=== PATIENT | female | born 1940 | race Caucasian/White ===

== ENCOUNTER 2016-10-08 19:02 | Emergency (ER) | payer MEDICARE ==
[~2016-10-08] VITALS: Ht 167.6 cm; Wt 68.4 kg
[2016-10-08 19:19] VITALS: BP 141/77; PULSE 79; RESP 20; O2SAT 97
--- NOTE | 2016-10-08 19:35 | ED.REPORT ---
HPI-Abd Pain F 40 and Over Date of Service Oct 08, 2016 ED Provider: Leonardo Easton MD Pt is a 76 y/o female w/ a hx of HTN, dementia, Crohn's, diverticulitis, presenting to the ED c/o N/V/D onset this morning. She c/o associated abdominal pain which she describes as a lower abdominal fullness with radiation to the back, chills, dysuria. She has had 5 episodes of diarrhea and 2 episodes of emesis today. She denies fever, urinary frequency, hematuria, CP, SOB, lightheadedness, cough. There was 1 episode of bloody diarrhea 2 days ago and her daughter noted some blood on the toilet paper today. There has been significant weight loss within the past year. She does have a 17 year history of abdominal issues which she has been told are related to Crohn's disease and diverticulitis. Nursing Notes Stated Complaint: VOMITTING, DIARHEA Chief Complaint: Female Abdominal Pain Nursing Notes Reviewed: Yes Allergies: Coded Allergies: No Known Allergies (Unverified , 10/08/16) General Time Seen by MD: 19:34 Chief Complaint Other (NVD) Hx Obtained From: Patient Arrived By: Walk-in Sudden in Onset?: No Onset Occurred: 5 - 8 hours ago Symptom Duration: Since onset Progression since Onset: Unchanged Location: : Diffuse Quality: Aching Severity: Current: Mild Severity: Maximum: Mild Past Medical History Past Medical History Breast cancer bilat - s/p mastectomy Dementia HTN Crohn's disease Hx diverticulitis Past Surgical History Bilat mastectomy Breast reconstruction Smoking History Unknown if Ever Smoker Social History Other Social History: Good social support Ambulatory Status Independent Review of Systems Constitutional: Reports: Chills, Denies: Fever Respiratory: Denies: Non-productive cough, Shortness of breath Cardiovascular: Denies: Chest pain GI: Reports: Abdominal pain, Bloody/tarry stool, Diarrhea, Nausea, Vomiting Female: Reports: Dysuria, Denies: Urinary frequency Complete sys rev & neg: except as marked. Neurologic: Denies: Lightheaded Physical Exam Vital Signs Vital Signs (First) Date Time Temp Pulse Resp B/P Pulse Ox O2 Delivery O2 Flow Rate FiO2 10/08/16 19:19 36.6 79 20 141/77 97 Room Air Initial VS: Reviewed, Vital signs normal Head / Eyes: Atraumatic, Normocephalic, PERRL Neck: Supple, Full range of motion Extremities: Vascular intact, Neuro intact, No swelling, No tenderness Skin: Warm, Dry, No cyanosis Neurologic: Alert, Oriented, Nonfocal Psychiatric: Mood/affect normal, Behavior normal, Normal thought content General/Constitutional: Awake, Alert, No acute distress, Cooperative, Not toxic appearing Respiratory / Chest: Atraumatic, Breath sounds NL, Breath sounds = bilat, No respiratory distress, No rales, No rhonchi, No wheezing, No retractions, No stridor, No chest tenderness, No chest wall deformity, No crepitus Cardiovascular: Heart rate NL, Regular rhythm, Heart sounds NL, No gallop, No murmurs, No rubs, Cap refill not delayed, Peripheral circulation NL Abdomen: Atraumatic, Soft, No guarding, No rebound, No distention, No palpable mass Tenderness/Guarding/Rebound: Positive: Tender LLQ... (Moderate), Tender diffuse (mild) Back: Full range of motion, Painless range of motion, No CVA tenderness Rectum / Perineum: Atraumatic, Blood - occult heme -, No gross blood Right anterior internal hemorrhoid Interpretation & Diagnostics Lab Results Interpretation Result Diagram: 10/08/16199910/08/161999 Test 10/08/16 20:00 10/08/16 21:30 White Blood Count 9.4th/mm3 (3.8-10.1) Red Blood Count 5.18mil/mm3 (3.90-5.20) Hemoglobin 15.5g/dL (12.0-15.6) Hematocrit 44.6% (35.0-46.0) Mean Corpuscular Volume 86.1fL (81-100) Mean Corpuscular Hemoglobin 29.9pg (27.0-35.0) Mean Corpuscular Hemoglobin Concent 34.8% (32.0-37.0) Red Cell Distribution Width 13.6% (12.3-15.4) Platelet Count 199bil/L (150-400) Neutrophils (%) (Auto) 87.6% (40-74) Lymphocytes (%) (Auto) 6.7% (14-46) Monocytes (%) (Auto) 4.9% (4-12) Eosinophils (%) (Auto) 0.3% (0-5) Basophils (%) (Auto) 0.2% (0-3) Hold Purple Top Tube Received (Received) Hold Blue Top Tube Received (Received) Sodium Level 140mEq/L (134-144) Potassium Level 3.3mEq/L (3.5-5.2) Chloride Level 102mEq/L (97-108) Carbon Dioxide Level 20mmol/L (18-29) Blood Urea Nitrogen 17mg/dL (8-27) Creatinine 0.82mg/dL (0.57-1.00) Estimat Glomerular Filtration Rate 97mL/min (>59) Glucose Level 164mg/dL (60-99) Calcium Level 10.1mg/dL (8.5-10.1) Magnesium Level 2.0mg/dL (1.6-2.6) Total Bilirubin 0.5mg/dL (0.0-1.2) Aspartate Amino Transf (AST/SGOT) 28U/L (0-50) Alanine Aminotransferase (ALT/SGPT) 17U/L (0-32) Alkaline Phosphatase 84U/L (25-165) Total Protein 7.2g/dL (6.4-8.4) Albumin 4.2g/dL (3.4-5.0) Lipase 46U/L (13-60) Hold Red Top Tube Received (Received) Hold [place] Top Tube Received (Received) Hold Sánchez Top Tube Received (Received) Urine Color Yellow (YELLOW) Urine Appearance Clear (CLEAR,HAZY) Urine pH 6.5 (5.0-8.0) Urine Specific [place] 1.015 (1.003-1.035) Urine Protein Negativemg/dL (NEG,TRACE) Urine Glucose (UA) Negativemg/dL (NEGATIVE) Urine Ketones Negativemg/dL (NEGATIVE) Urine Occult Blood Small (NEGATIVE) Urine Nitrite Positive (NEGATIVE) Urine Bilirubin Negative (NEGATIVE) Urine Urobilinogen Normalmg/dL (NORMAL) Urine Leukocyte Esterase Small (NEGATIVE) Urine RBC 0-2/hpf (0-2) Urine WBC 6-10/hpf (0-5) Urine Epithelial Cells None/hpf (NONE-MOD) Urine Crystals None seen (NONE SEEN) Urine Bacteria Many/hpf (NONE-FEW) Urine Hyaline Casts None/lpf (NONE) Urine Granular Casts None seen (NONE SEEN) Urine Waxy Casts None seen (NONE SEEN) Urine Red Blood Cell Casts None seen (NONE SEEN) Urine White Blood Cell Casts None seen (NONE SEEN) Urine Mucus Present (None Seen) Urine Trichomonas None seen (NONE SEEN) Urine Yeast None (NONE SEEN) Urinalysis Comment None Urine Culture Reflexed Indicated Re-Eval/Medical Decision Re-Evaluation/Progress : Time of Eval: 22:25 Re-Evaluation/Progress Note: Pt rechecked. Discussed lab results. Informed pt of plan for treatment. Pt understands and agrees with plan for treatment. F/U instructions and RTER warnings given. All questions addressed. Counseled Regarding: Diagnosis, Lab results, Need for follow-up, When/why to return to ED Discharge & Departure Primary Impression: Urinary tract infection Urinary tract infection type: site unspecified Hematuria presence: without hematuria Qualified Code: N39.0 - Urinary tract infection, site not specified Additional Impression: Gastroenteritis Disposition: Home Discharge Condition All VS Reviewed: Yes Condition: Stable Patient Instructions: Urinary Tract Infection in Women (ED), Gastroenteritis ( ED) Additional Instructions: The lab tests today were normal other than the urine which showed signs of infection. With each diarrhea stool, give her Imodium. Give her Zofran as needed for nausea and vomiting. Give her the full course of Macrobid as directed. Return to the emergency department for uncontrolled vomiting or diarrhea, lethargy or profound weakness, high fever, severe pain, persistent bloody stools , or for other concerning symptoms. Follow up with her doctor later this week if she does not improve. Referrals: [facility] Scribe Attestation Portions of this note were transcribed by Javier Garcia. I, Dr. Easton personally performed the history, physical exam and medical decision-making; I reviewed and confirmed the accuracy of the information in the transcribed note. Signed by Sincere Cabrera, 10/08/16 - 1999 Leonardo Easton MD Oct 08, 2016 19:35 JAVIER GARCIA Oct 08, 2016 19:38
[2016-10-08] MEDS ORDERED: 0.9% Sodium Chloride 1,000 ML IV ONE (20:24)
[2016-10-08] MEDS ORDERED: Pantoprazole 4 mg/mL 10 mL Inj IVPUSH ONE (20:25)
[2016-10-08] MEDS ORDERED: Ondansetron 2 mg/mL 2 mL Inj IVPUSH PRN (20:25)
[2016-10-08 20:35] LABS: BASOPHILS % (AUTO) 0.2 % (0-3); EOSINOPHILS % (AUTO) 0.3 % (0-5); MONOCYTES % (AUTO) 4.9 % (4-12); Mean Corpuscular Hemoglobin 29.9 pg (27.0-35.0); Mean Corpuscular Volume 86.1 fL (81-100); NEUTROPHILS % (AUTO) 87.6 % (40-74); Platelet Count 199 bil/L (150-400)
[2016-10-08 21:46] VITALS: BP 123/60; PULSE 86; RESP 17; O2SAT 97
[2016-10-08 21:46] LABS: APPEARANCE,URINE CLEAR (CLEAR,HAZY); COLOR,URINE YELLOW (YELLOW); OCCULT BLOOD,URINE SMALL (NEGATIVE); PH,URINE 6.5 (5.0-8.0); UROBILINOGEN,URINE NORMAL (NORMAL)
[2016-10-08] MEDS ORDERED: Nitrofurantoin Monohyd-Macrocryst 100 mg Capsule PO ONE (22:30)
[2016-10-08] MEDS ORDERED: _Ondansetron ODT 4 mg Tablet PO PRN (22:30)
[2016-10-08] MEDS ORDERED: NITR100 PO (22:34)
[2016-10-08 22:59] VITALS: BP 127/66; PULSE 78; RESP 17; O2SAT 99
== END 2016-10-08 23:11 | disposition home or self-care (01) ==
LOC: SED 19:02
DX: N39.0 Urinary tract infection, site not specified (principal); K52.9 Noninfective gastroenteritis and colitis, unspecified; B96.20 Unspecified Escherichia coli [E. coli] as the cause of diseases classified elsewhere; I10 Essential (primary) hypertension; K50.90 Crohn's disease, unspecified, without complications; F03.90 Unspecified dementia, unspecified severity, without behavioral disturbance, psychotic disturbance, mood disturbance, and anxiety
CPT/HCPCS: 36415; 80053; 81000; 83690; 83735; 85025; 87077; 87086; 87088; 87186; 96374; 96375; 99285; J2405; J7030

== ENCOUNTER 2017-04-04 15:58 | Emergency (ER) | payer MEDICARE ==
[~2017-04-04] VITALS: Ht 160 cm; Wt 70.1 kg
[~2017-04-04 15:58] MED LIST: NITR100 PO
[2017-04-04 16:20] VITALS: BP 152/72; PULSE 73; RESP 18; O2SAT 95
[2017-04-04 18:52] VITALS: BP 148/85; PULSE 85; RESP 20; O2SAT 98
--- NOTE | 2017-04-04 19:36 | ED.REPORT ---
HPI-General Illness Date of Service Apr 04, 2017 ED Provider: Dr. Leonardo Easton MD A demented 76 year old female with a history of hypertension, Crohn's, diverticulitis presents to the ED with worsening dementia symptoms that began a few weeks ago. The patient's [id number] reports that she has become increasingly confused, hallucinations, bowel incontinence and had a GLF 3 days ago. The patient currently lives with her son's in-law's in an attached complex and currently lives with her who was checked into the ED at the same time.. She is currently endorsing leg pain. Limited history due to patient mental status. Nursing Notes Stated Complaint: DEMENTIA ISSUES Chief Complaint: General Complaint Nursing Notes Reviewed: Yes Allergies: Coded Allergies: No Known Allergies (Unverified , 10/08/16) Scheduled Nitrofurantoin Monohyd/M-Cryst (MacroBid) 100 Mg Capsule 100 MG PO BID Scheduled PRN Lorazepam (Ativan) 1 Mg Tablet 0.5-1 MG PO TID PRN PRN For Anxiety or Agitation General Time Seen by MD: 19:35 Chief Complaint Other (Worsening Dementia) Hx Obtained From: Daughter Arrived By: Walk-in Sudden in Onset?: No Onset Occurred: 3 days ago Symptom Duration: Since onset Pertinent Negative: Pt denies other symptoms Recent Healthcare: No recent doctor visit, No recent hospitalization Past Medical History Past Medical History Breast cancer bilat - s/p mastectomy Dementia HTN Crohn's disease Hx diverticulitis Past Surgical History Bilat mastectomy Breast reconstruction Smoking History Unknown if Ever Smoker Social History Lives with [id number]'s parents in an attached complex. Other Social History: Good social support, Local resident Ambulatory Status Independent Review of Systems Full Review of Systems Female: Reports: Incontinence (Bowel) Musculoskeletal: Reports: Extremity pain (Bilateral LE) Neurologic: Reports: Confusion Psychiatric: Reports: Hallucinations, visual Complete sys rev & neg: except as marked. Physical Exam Vital Signs Vital Signs Date Time Temp Pulse Resp B/P Pulse Ox O2 Delivery O2 Flow Rate FiO2 04/04/17 21:15 36.7 88 18 152/80 98 Room Air 04/04/17 18:52 85 20 148/85 98 Room Air 04/04/17 16:20 36.8 73 18 152/72 95 Initial VS: Reviewed Neck: Supple, Non-tender, Full range of motion Extremities: Vascular intact, Neuro intact, No swelling, No tenderness Skin: Warm, Dry, No cyanosis Psychiatric: Mood/affect normal, Behavior normal, Normal thought content General/Constitutional: Awake, Alert, No acute distress Head / Eyes: Atraumatic, Normocephalic, PERRL Respiratory / Chest: Atraumatic, Breath sounds NL, Breath sounds = bilat, No respiratory distress Cardiovascular: Heart rate NL, Regular rhythm, Heart sounds NL Abdomen: Atraumatic, Soft, Non-tender Neurologic: Speech NL, No motor deficits, No sensory deficits Mental Status: Positive: Disoriented to place, Disoriented to time Unable to remember son's name Interpretation & Diagnostics Lab Results Interpretation Result Diagram: 04/04/17203904/04/172039 Test 04/04/17 20:00 04/04/17 20:40 Urine Color Yellow (YELLOW) Urine Appearance Clear (CLEAR,HAZY) Urine pH 6.5 (5.0-8.0) Urine Specific [place] 1.010 (1.003-1.035) Urine Protein Negativemg/dL (NEG,TRACE) Urine Glucose (UA) Negativemg/dL (NEGATIVE) Urine Ketones Negativemg/dL (NEGATIVE) Urine Occult Blood Negative (NEGATIVE) Urine Nitrite Negative (NEGATIVE) Urine Bilirubin Negative (NEGATIVE) Urine Urobilinogen 2.0mg/dL (NORMAL) Urine Leukocyte Esterase Negative (NEGATIVE) Urine RBC 0-2/hpf (0-2) Urine WBC 0-5/hpf (0-5) Urine Epithelial Cells None/hpf (NONE-MOD) Urine Crystals None seen (NONE SEEN) Urine Bacteria Few/hpf (NONE-FEW) Urine Hyaline Casts None/lpf (NONE) Urine Granular Casts None seen (NONE SEEN) Urine Waxy Casts None seen (NONE SEEN) Urine Red Blood Cell Casts None seen (NONE SEEN) Urine White Blood Cell Casts None seen (NONE SEEN) Urine Mucus None seen (None Seen) Urine Trichomonas None seen (NONE SEEN) Urine Yeast None (NONE SEEN) Urinalysis Comment None Urine Culture Reflexed Not indicated White Blood Count 6.5th/mm3 (3.8-10.1) Red Blood Count 4.60mil/mm3 (3.90-5.20) Hemoglobin 14.4g/dL (12.0-15.6) Hematocrit 40.5% (35.0-46.0) Mean Corpuscular Volume 88.0fL (81-100) Mean Corpuscular Hemoglobin 31.3pg (27.0-35.0) Mean Corpuscular Hemoglobin Concent 35.6% (32.0-37.0) Red Cell Distribution Width 13.3% (12.3-15.4) Platelet Count 167bil/L (150-400) Neutrophils (%) (Auto) 67.2% (40-74) Lymphocytes (%) (Auto) 22.2% (14-46) Monocytes (%) (Auto) 9.2% (4-12) Eosinophils (%) (Auto) 0.9% (0-5) Basophils (%) (Auto) 0.3% (0-3) Sodium Level 139mEq/L (134-144) Potassium Level 3.0mEq/L (3.5-5.2) Chloride Level 101mEq/L (97-108) Carbon Dioxide Level 22mmol/L (18-29) Blood Urea Nitrogen 8mg/dL (8-27) Creatinine 0.89mg/dL (0.57-1.00) Estimat Glomerular Filtration Rate 88mL/min (>59) Glucose Level 120mg/dL (60-99) Calcium Level 10.7mg/dL (8.5-10.1) Magnesium Level 1.8mg/dL (1.6-2.6) Total Bilirubin 0.9mg/dL (0.0-1.2) Aspartate Amino Transf (AST/SGOT) 28U/L (0-50) Alanine Aminotransferase (ALT/SGPT) 22U/L (0-32) Alkaline Phosphatase 87U/L (25-165) Total Protein 6.5g/dL (6.4-8.4) Albumin 3.8g/dL (3.4-5.0) Hold Sánchez Top Tube Received (Received) ECG Interpretation ECG Interpretation: Sinus rhythm Rate 79 bpm Low voltage, precordial leads Prolonged QT interval Time: 19:53 Interpreted by: ED physician X-Ray Chest Interpretation Chest Xray Interpretation: IMPRESSION: 1. No acute cardiopulmonary disease. Dictated by: Peewee Alston M.D. on 04/04/2017 at 20:34 Interpretation / Wet Read by: Interpret - Radiologist CT Head Interpretation IMPRESSION: 1. No acute intracranial abnormality. 2. Moderate chronic white matter small vessel ischemic changes and cerebral volume loss. Dictated by: Peewee Alston M.D. on 04/04/2017 at 20:30 Study: Head CT no contrast Interpretation / Wet Read by: Interpret - Radiologist Re-Eval/Medical Decision Time of Eval: 21:29 Patient Status: Condition improved Re-Evaluation/Progress Note: Patient is rechecked. Family is informed of her results and diagnosis. All questions are addressed at this time. They understand and agree with the intended treatment plan. Counseled Regarding: Diagnosis, Lab results, Need for follow-up, When/why to return to ED Discharge & Departure Primary Impression: Acute situational disturbance Additional Impressions: Dementia Fall from ground level Disposition: Home Discharge Condition All VS Reviewed: Yes Condition: Stable Patient Instructions: Dementia (ED) Additional Instructions: Thank you for trusting us with you care this evening. Your emergency department evaluation today including lab work, EKG and chest X- ray and CT scan of the head are reassuring that there is no emergent cause for concern at this time. Please take lorazepam as needed for episodes of agitation. Follow up with your primary care physician in the next 2-3 days for a recheck. Please return to the emergency department for any new or worsening symptoms including high fever, shaking chills, nausea, vomiting, worsening pain, lightheadedness, weakness, or any numbness/tingling. Referrals: [facility] (PCP) [facility] Res[facility] Scribe Attestation Portions of this note were transcribed by Susy Kendall. I, Dr. Easton personally performed the history, physical exam and medical decision-making; I reviewed and confirmed the accuracy of the information in the transcribed note. Leonardo Easton MD Apr 04, 2017 19:35 SUSY KENDALL Apr 04, 2017 19:44
--- NOTE | 2017-04-04 20:33 | DRSVH ---
PROCEDURE: CT BRAIN WITHOUT CONTRAST ([id number]) INDICATIONS: trauma TECHNIQUE: Noncontrast 4.5 mm thick angled axial sections acquired from the foramen magnum to the vertex, with c oronal reformats. COMPARISON: None. FINDINGS: Image quality: Excellent. CSF spaces: Basal cisterns are patent. No extra-axial fluid collections. The ventricles are symmet osorio in size and shape. There is moderate cerebral volume loss, with resultant ventricular and sulcal prominence. Brain: No intracranial hemorrhage, mass, or mass effect. There are subcortical, periventricular and deep white matter hypodensities consistent with moderate chronic small vessel ischemic changes. The re is intracranial internal carotid artery atherosclerosis. Skull and face: Calvarium and visualized facial bones appear intact, without suspicious lesions. Sinuses: Visualized sinuses and mastoids are clear. IMPRESSION: 1. No acute intracranial abnormality. 2. Moderate chronic white matter small vessel ischemic changes and cerebral volume loss. Dictated by: Peewee Alston M.D. on 04/04/2017 at 20:30 Approved by: Peewee Alston M.D. on 04/04/2017 at 20:31
--- NOTE | 2017-04-04 20:36 | DRSVH ---
PROCEDURE: X-RAY CHEST ONE VIEW, PORTABLE ([id number]) INDICATIONS: altered mental state TECHNIQUE: One view of the chest was acquired. COMPARISON: None. FINDINGS: Surgical changes and devices: None. Lungs and pleura: No pleural effusions or pneumothorax. Lungs are clear. Mediastinum: Mediastinal contours appear normal. Heart size is normal. Bones and chest wall: No suspicious bony lesions. Overlying soft tissues appear unremarkable. IMPRESSION: 1. No acute cardiopulmonary disease. Dictated by: Peewee Alston M.D. on 04/04/2017 at 20:34 Approved by: Peewee Alston M.D. on 04/04/2017 at 20:34
[2017-04-04 20:46] LABS: APPEARANCE,URINE CLEAR (CLEAR,HAZY); COLOR,URINE YELLOW (YELLOW); OCCULT BLOOD,URINE NEGATIVE (NEGATIVE); PH,URINE 6.5 (5.0-8.0)
[2017-04-04 20:47] LABS: BASOPHILS % (AUTO) 0.3 % (0-3); EOSINOPHILS % (AUTO) 0.9 % (0-5); MONOCYTES % (AUTO) 9.2 % (4-12); Mean Corpuscular Hemoglobin 31.3 pg (27.0-35.0); NEUTROPHILS % (AUTO) 67.2 % (40-74); Platelet Count 167 bil/L (150-400)
[2017-04-04 21:13] LABS: Magnesium 1.8 mg/dL (1.6-2.6)
[2017-04-04 21:15] VITALS: BP 152/80; PULSE 88; RESP 18; O2SAT 98
[2017-04-04] MEDS ORDERED: LORazepam 2 mg Tablet PO ONE (21:35)
[2017-04-04] MEDS ORDERED: LORA-303 PO (21:35)
[2017-04-04 21:54] VITALS: BP 136/76; PULSE 88; RESP 18; O2SAT 98
== END 2017-04-04 21:56 | disposition home or self-care (01) ==
LOC: SED 15:58
DX: F43.0 Acute stress reaction (principal); F03.90 Unspecified dementia, unspecified severity, without behavioral disturbance, psychotic disturbance, mood disturbance, and anxiety; W18.39XA Other fall on same level, initial encounter; Y93.9 Activity, unspecified; Y92.9 Unspecified place or not applicable; Y99.9 Unspecified external cause status; I10 Essential (primary) hypertension; Z85.3 Personal history of malignant neoplasm of breast

== ENCOUNTER 2017-04-23 17:29 | Emergency (ER) | payer MEDICARE ==
[~2017-04-23] VITALS: Ht 170.2 cm; Wt 68.0 kg
[~2017-04-23 17:29] MED LIST changes: +LORA-303 PO
[2017-04-23 17:42] VITALS: BP 159/80; PULSE 64; RESP 17; O2SAT 99
--- NOTE | 2017-04-23 18:11 | ED.REPORT ---
HPI-General Illness Date of Service Apr 23, 2017 ED Provider: Joselito Quezada Pt is a 76 year old female with history of dementia, HTN, and UTIs who presents to the ED complaining of non-productive cough onset 2 days ago. She c/o associated incontinence. She denies increased urination. Her reports intermittent confusion. Nursing Notes Stated Complaint: POSS UTI, COUGH Chief Complaint: General Complaint Nursing Notes Reviewed: Yes Allergies: Coded Allergies: No Known Allergies (Unverified , 10/08/16) Scheduled Nitrofurantoin Monohyd/M-Cryst (MacroBid) 100 Mg Capsule 100 MG PO BID Scheduled PRN Lorazepam (Ativan) 1 Mg Tablet 0.5-1 MG PO TID PRN PRN For Anxiety or Agitation General Time Seen by MD: 18:10 Chief Complaint Cough Hx Obtained From: Patient, Spouse Arrived By: Walk-in Onset Occurred: 2 days ago Symptom Duration: Since onset Severity: Current: No pain currently Severity: Maximum: No pain Recent Healthcare: Recent doctor visit Similar Sx Previous: Yes Past Medical History Past Medical History Breast cancer bilat - s/p mastectomy Dementia Crohn's disease Diverticulitis Reports: Hypertension Past Surgical History Bilat mastectomy Breast reconstruction Smoking History Unknown if Ever Smoker Social History Lives with [id number]-iac's parents in an attached complex. Alcohol Use: Denies alcohol use Drug Use: Denies drug use Other Social History: Good social support, Local resident Ambulatory Status Independent Review of Systems Full Review of Systems Constitutional: Denies: Fever Respiratory: Reports: Non-productive cough, Denies: Shortness of breath Female: Reports: Incontinence, Urination increased Neurologic: Reports: Confusion Complete sys rev & neg: except as marked. Physical Exam Vital Signs Vital Signs Date Time Temp Pulse Resp B/P Pulse Ox O2 Delivery O2 Flow Rate FiO2 04/23/17 21:17 36.6 66 16 144/81 99 Room Air 04/23/17 17:42 36.4 64 17 159/80 99 Room Air Initial VS: Reviewed Head / Eyes: Atraumatic, Normocephalic Neck: Supple, Full range of motion Respiratory: Breath sounds normal, Clear to auscultation, No respiratory distress Cardiovascular: Regular rate & rhythm, Heart sounds normal, Intact distal pulses Abdomen / GI: Soft, Non-tender Extremities: Vascular intact, Neuro intact Skin: Warm, Dry, No cyanosis Psychiatric: Mood/affect normal, Behavior normal General/Constitutional: Awake, Alert Pleasant Neurologic: Speech NL Confused Interpretation & Diagnostics Lab Results Interpretation Result Diagram: 04/23/17 1902 04/23/17 1902 Test 04/23/17 18:24 04/23/17 19:02 04/23/17 19:03 Urine Color Yellow (YELLOW) Urine Appearance Hazy (CLEAR,HAZY) Urine pH 20 (5.0-8.0) Urine Specific [place] 5.5 (1.003-1.035) Urine Protein Negativemg/dL (NEG,TRACE) Urine Glucose (UA) Negativemg/dL (NEGATIVE) Urine Ketones Negativemg/dL (NEGATIVE) Urine Occult Blood Negative (NEGATIVE) Urine Nitrite Negative (NEGATIVE) Urine Bilirubin Negative (NEGATIVE) Urine Urobilinogen Normalmg/dL (NORMAL) Urine Leukocyte Esterase Moderate (NEGATIVE) Urine RBC 0-2/hpf (0-2) Urine WBC 6-10/hpf (0-5) Urine Epithelial Cells Moderate/hpf (NONE-MOD) Urine Crystals None seen (NONE SEEN) Urine Bacteria Few/hpf (NONE-FEW) Urine Hyaline Casts None/lpf (NONE) Urine Granular Casts None seen (NONE SEEN) Urine Waxy Casts None seen (NONE SEEN) Urine Red Blood Cell Casts None seen (NONE SEEN) Urine White Blood Cell Casts None seen (NONE SEEN) Urine Mucus None seen (None Seen) Urine Trichomonas None seen (NONE SEEN) Urine Yeast None (NONE SEEN) Urinalysis Comment None Urine Culture Reflexed Indicated White Blood Count 5.9th/mm3 (3.8-10.1) Red Blood Count 4.77mil/mm3 (3.90-5.20) Hemoglobin 14.8g/dL (12.0-15.6) Hematocrit 42.1% (35.0-46.0) Mean Corpuscular Volume 88.3fL (81-100) Mean Corpuscular Hemoglobin 31.0pg (27.0-35.0) Mean Corpuscular Hemoglobin Concent 35.2% (32.0-37.0) Red Cell Distribution Width 13.3% (12.3-15.4) Platelet Count 179bil/L (150-400) Neutrophils (%) (Auto) 66.9% (40-74) Lymphocytes (%) (Auto) 23.5% (14-46) Monocytes (%) (Auto) 7.5% (4-12) Eosinophils (%) (Auto) 1.5% (0-5) Basophils (%) (Auto) 0.3% (0-3) Sodium Level 139mEq/L (134-144) Potassium Level 3.6mEq/L (3.5-5.2) Chloride Level 103mEq/L (97-108) Carbon Dioxide Level 21mmol/L (18-29) Blood Urea Nitrogen 21mg/dL (8-27) Creatinine 0.70mg/dL (0.57-1.00) Estimat Glomerular Filtration Rate 116mL/min (>59) Glucose Level 151mg/dL (60-99) Calcium Level 10.6mg/dL (8.5-10.1) Total Bilirubin 0.8mg/dL (0.0-1.2) Aspartate Amino Transf (AST/SGOT) 21U/L (0-50) Alanine Aminotransferase (ALT/SGPT) 16U/L (0-32) Alkaline Phosphatase 97U/L (25-165) Troponin T < 0.010ug/L (0.0-0.011) Total Protein 6.7g/dL (6.4-8.4) Albumin 4.0g/dL (3.4-5.0) Hold Sánchez Top Tube Received (Received) X-Ray Chest Interpretation Chest Xray Interpretation: IMPRESSION: No acute cardiopulmonary disease. Dictated by: Gisselle Rashid M.D. on 04/23/2017 at 19:01 View: AP & lat Interpretation / Wet Read by: Interpret - Radiologist Re-Eval/Medical Decision Source of Hx: Old records Time of Eval: 21:06 Re-Evaluation/Progress Note: Pt rechecked. Informed pt of plan for discharge. Pt understands and agrees with plan for discharge. F/U instructions and RTER warnings given. All questions addressed. Counseled Regarding: Diagnosis, Lab results, Need for follow-up, When/why to return to ED Discharge & Departure Primary Impression: Urinary tract infection Urinary tract infection type: site unspecified Hematuria presence: without hematuria Qualified Code: N39.0 - Urinary tract infection, site not specified Additional Impression: Dementia Dementia type: unspecified type Dementia behavioral disturbance: without behavioral disturbance Qualified Code: F03.90 - Unspecified dementia without behavioral disturbance Disposition: Home Discharge Condition All VS Reviewed: Yes Condition: Stable Patient Instructions: Dementia (ED), Urinary Tract Infection in Women (ED) Additional Instructions: The chest x-ray and a brain scan were normal. No signs of pneumonia or hemorrhage. I do suspect that she has a urinary tract infection. We are going to culture her urine. He is to stay on all of her medications including the new antibiotic. Take Keflex 4x daily for 5 days. Call your primary care provider tomorrow for a follow up appointment this week. The urine culture should be available by then. Return to the Emergency Department for any new or worrisome symptoms. Referrals: [facility] Scribe Attestation Portions of this note were transcribed by Tyesha Riddle. I, Dr. Quezada personally performed the history, physical exam and medical decision-making; I reviewed and confirmed the accuracy of the information in the transcribed note. Signed by : Sincere Rogers, 04/23/17. copies to: [facility] Joselito Quezada DO Apr 23, 2017 18:10 Tyesha Marcelino Apr 23, 2017 18:22
[2017-04-23 18:33] LABS: COLOR,URINE YELLOW (YELLOW)
[2017-04-23 18:34] LABS: APPEARANCE,URINE HAZY (CLEAR,HAZY); OCCULT BLOOD,URINE NEGATIVE (NEGATIVE); PH,URINE 20 (5.0-8.0); UROBILINOGEN,URINE NORMAL (NORMAL)
--- NOTE | 2017-04-23 19:03 | DRSVH ---
PROCEDURE: X-RAY CHEST, TWO VIEWS ([id number]) INDICATIONS: cough TECHNIQUE: 2 views of the chest were acquired. COMPARISON: [facility], CR, XR CHEST 1VW (PORTABLE), 04/04/2017, 20:07. FINDINGS: Surgical changes and devices: None. Lungs and pleura: No pleural effusions or pneumothorax. Lungs are clear. Mediastinum: Mediastinal contours are normal. Heart size is normal. Bones and chest wall: No suspicious bony abnormalities. Soft tissues appear unremarkable. IMPRESSION: No acute cardiopulmonary disease. Dictated by: Gisselle Rashid M.D. on 04/23/2017 at 19:01 Approved by: Gisselle Rashid M.D. on 04/23/2017 at 19:01
[2017-04-23 19:07] LABS: BASOPHILS % (AUTO) 0.3 % (0-3); EOSINOPHILS % (AUTO) 1.5 % (0-5); MONOCYTES % (AUTO) 7.5 % (4-12); Mean Corpuscular Volume 88.3 fL (81-100); NEUTROPHILS % (AUTO) 66.9 % (40-74); Platelet Count 179 bil/L (150-400)
--- NOTE | 2017-04-23 20:29 | DRSVH ---
PROCEDURE: CT BRAIN WITHOUT CONTRAST ([id number]) INDICATIONS: worsening confusional state TECHNIQUE: Noncontrast 4.5 mm thick angled axial sections acquired from the foramen magnum to the vertex, with c oronal reformats. COMPARISON: [facility], CT, CT BRAIN WO CON, 04/04/2017, 20:03. FINDINGS: Image quality: Excellent. CSF spaces: Basal cisterns are patent. No extra-axial fluid collections. The ventricles are symmet osorio in size and shape. Brain: No intracranial bleeds or masses. There is moderate cerebral volume loss for age, with resul tant ventricular and sulcal prominence. There are moderate periventricular and deep white matter chr onic small vessel ischemic changes. An old lacunar infarct in the right basal ganglia. There is intr acranial internal carotid artery atherosclerosis. Skull and face: Calvarium and visualized facial bones appear intact, without suspicious lesions. Sinuses: Visualized sinuses and mastoids are clear. IMPRESSION: 1. No acute intracranial abnormalities. 2. Cerebral volume loss and chronic microvascular ischemic changes. Dictated by: Gisselle Rashid M.D. on 04/23/2017 at 20:26 Approved by: Gisselle Rashid M.D. on 04/23/2017 at 20:27
[2017-04-23 21:17] VITALS: BP 144/81; PULSE 66; RESP 16; O2SAT 99
== END 2017-04-23 21:17 | disposition home or self-care (01) ==
LOC: SED 17:29
DX: N39.0 Urinary tract infection, site not specified (principal); F03.90 Unspecified dementia, unspecified severity, without behavioral disturbance, psychotic disturbance, mood disturbance, and anxiety; I10 Essential (primary) hypertension; Z85.3 Personal history of malignant neoplasm of breast